=== PATIENT | male | born 1980 | race Hispanic/Latino ===

== ENCOUNTER 2023-11-21 23:33 | Emergency (ER) | payer SELFPAY ==
[~2023-11-21] VITALS: Ht 172.7 cm; Wt 102.5 kg
[2023-11-21] MEDS ORDERED: LACTATED RINGER'S 1,000 ML IV ONE (23:45)
[2023-11-21] MEDS ORDERED: NALOXONE HCL 2 MG/2 ML SYR NAS ONE (23:45)
[2023-11-22 01:20] LABS: AMPHETAMINES, URINE POSITIVE (NEGATIVE); BARBITURATES, URINE NEGATIVE (NEGATIVE); BENZODIAZEPINE, URINE NEGATIVE (NEGATIVE); BUPRENORPHINE, URINE NEGATIVE (NEGATIVE); CANNABINOID, URINE NEGATIVE (NEGATIVE); COCAINE, URINE NEGATIVE (NEGATIVE); ECSTASY, URINE POSITIVE (NEGATIVE); FENTANYL, URINE POSITIVE (NEGATIVE); METHADONE, URINE NEGATIVE (NEGATIVE); OPIATES, URINE NEGATIVE (NEGATIVE); OXYCODONE, URINE NEGATIVE (NEGATIVE); PHENCYCLIDINE, URINE NEGATIVE (NEGATIVE)
[2023-11-22] MEDS ORDERED: NALOXONE HCL 2 MG/2 ML SYR IV ONE (01:30)
[2023-11-22] MEDS ORDERED: AMOX TR-K CLV1 EAC1 PO (01:55)
[2023-11-22 02:04] VITALS: BP 114/96
== END 2023-11-22 02:05 | disposition other institution, planned readmission (95) ==
LOC: ED 23:33
PROVIDERS: Family Medicine
DX: Z02.89 Encounter for other administrative examinations (principal)
CPT/HCPCS: 36415; 80307; 96374; 99284-25; G0480; J2310; J7121